=== PATIENT | female | born 1980 | race Caucasian/White ===

== ENCOUNTER 2017-07-25 05:41 | Inpatient (IN) | payer OTHER ==
--- NOTE | 2017-07-18 16:56 | GHP ---
[f rep st] PREOP HISTORY AND PHYSICAL DATE OF ADMISSION: 07/25/2017 ADMITTING DIAGNOSIS: 1. Intrauterine at 39 weeks. 2. History of section. 3. Request for permanent sterilization. HISTORY OF PRESENT ILLNESS: Patient is a 37-year-old 2, para 1-0-0-1, at 40 weeks with estimated due date 08/01/2017; this is by last menstrual period 10/24/2016, and confirmed by a first-trimester ultrasound at 9 weeks. The patient presented for a repeat , declines trial of labor. The patient has a history of a previous secondary to arrest of dilation and intolerance to labor. The patient states good movement. Denies any leakage of fluid, vaginal bleeding or any contractions at this time. The patient has good care at [facility], presented in her 1st trimester at 9 weeks. is complicated by AMA with all negative noninvasive testing. is also complicated by previous C- section. The patient has a history of depression, stable on Zoloft. She also has a history of HSV type 2 and was started on prophylactic Valtrex at 36 weeks. The patient did develop anemia of , and is tolerating iron. The patient did receive Tdap. On 20-week ultrasound, the tip of the placenta was seen over the scar, does not invade the myometrial wall. A followup ultrasound at 32 weeks, the placenta is again seen above the scar but not invading myometrial wall. GBS culture is negative. PAST OB HISTORY: In December 2012, she delivered a viable male infant, 39 weeks and 5 days via secondary to failure to progress past 3 cm, and intolerance to labor, viable male infant weighing 9 pounds. 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 Cycles every 28 days for 5 days. LMP 10/24. The patient had one abnormal Pap smear years ago, and has been normal since, no treatment. The patient has used Mirena, Paragard, and mini pill in the past. The patient has a history of type 2 HSV, no genital outbreak in over 10 years, and denies exposure to any other sexually transmitted diseases. PAST MEDICAL HISTORY: Migraine headaches, depression. PAST SURGICAL HISTORY: Shoulder surgery in 2009 secondary to snowboarding accident. MEDICATIONS: vitamins and Zoloft 50 mg. ALLERGIES: Sulfa, reaction is rash. FAMILY HISTORY: Maternal side history of anxiety, depression, schizophrenia. Mother, alcohol abuse. Maternal grandmother has COPD. SOCIAL HISTORY: Patient is . She lives with her and their son. 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 Denies any alcohol, tobacco or illicit drug use. REVIEW OF SYSTEMS: A 10-point review of systems is negative. Pertinent positives noted in HPI. LABS: Blood type is A positive, antibody negative. RPR nonreactive. Rubella immune. Hepatitis B surface antigen negative. HIV negative. Trio screen was negative. Urine culture negative. Pap, gonorrhea, chlamydia cultures all negative. AFP negative. Verifi negative. H and H 12 and 34. 1-hour Glucola 113. GBS culture negative. PHYSICAL EXAMINATION: VITAL SIGNS: Stable. GENERAL APPEARANCE: Well- nourished, well-developed female, alert and oriented x3. CARDIOVASCULAR: Regular rate and rhythm. LUNGS: Clear to auscultation bilaterally. ABDOMEN: Gravid, soft, nontender, nondistended. EXTREMITIES: Normal to inspection without calf tenderness or edema. PELVIC: Deferred. ASSESSMENT: The patient is a 37-year-old 2, para 1-0-0-1, at 40 weeks with a previous , declines trial of labor and requests permanent sterilization. PLAN: 1. Admit to Labor and Delivery for a repeat . 2. Surgical consents were obtained. Discussed R/B/A with patient including but not limited to bleeding, infection and damage to surrounding organs. The patient understands all risks of the surgery and wants to proceed with surgery. 3. Antibiotics project control analyst to the operating room. 4. Sequential compression devices for deep venous thrombosis prophylaxis. 5. The patient is a full code. . /[id number]/MODL MTDD
[2017-07-25] MEDS ORDERED: LR 500 ML IV ONE (06:26)
[2017-07-25] MEDS ORDERED: CITRIC ACID/SODIUM CITRATE 30 ML UDCUP PO ONE (06:26)
[2017-07-25] MEDS ORDERED: LR 1,000 ML IV SCH (06:30)
[2017-07-25] MEDS ORDERED: MISOPROSTOL 200 MCG TAB ONE ×2 (06:50→07:30)
[2017-07-25 06:53] LABS: % IMMATURE GRANULYOCYTES 0.9 % (0.0-1.1); ABSOLUTE IMMATURE GRANULOCYTES 0.06 10^3/uL (0.00-0.10); ADD DIFF? NO; ADD MORPH? NO; ADD SCAN? NO; ATYPICAL LYMPHOCYTE FLAG 20 (0-99); FRAGMENT RBC FLAG 0 (0-99); HEMATOCRIT 37.2 % (38.0-47.0); HEMOGLOBIN 12.8 g/dL (12.6-16.3); LEFT SHIFT FLG 0 (0-99); LIPEMIA HEMOLYSIS FLAG 90 (0-99); MEAN CELL HEMOGLOBIN 30.8 pg (27.9-34.1); MEAN CELL HEMOGLOBIN CONCENTR. 34.4 g/dL (32.4-36.7); MEAN CELL VOLUME 89.6 fL (81.5-99.8); MEAN PLATELET VOLUME 10.2 fL (8.7-11.7); PLATELET CLUMPS FLAG 0 (0-99); PLATELET COUNT 225 10^3/uL (150-400); RED BLOOD CELL COUNT 4.15 10^6/uL (4.18-5.33); RED CELL DISTRIBUTION WIDTH 12.4 % (11.5-15.2)
[2017-07-25] MEDS ORDERED: fentaNYL 100 MCG/2 ML INJ ONE (07:30)
[2017-07-25] MEDS ORDERED: TERBUTALINE SULFATE 1 MG/ML VIAL ONE (07:30)
[2017-07-25] MEDS ORDERED: AMMONIA AROMATIC 1 EACH AMP IH ONE (07:30)
[2017-07-25] MEDS ORDERED: OLIVE OIL 118 ML BTL ONE (07:30)
[2017-07-25] MEDS ORDERED: LIDOCAINE 1% 300 MG/30 ML SDV ONE (07:30)
[2017-07-25] MEDS ORDERED: OXYTOCIN 10 UNIT/ML VIAL ONE (07:30)
[2017-07-25] MEDS ORDERED: ceFAZolin 2 GM/DEXTROSE 100 ML IV ONE (07:45)
[2017-07-25] MEDS ORDERED: epHEDrine SULFATE 10 MG/ML SYR ONE (07:58)
[2017-07-25] MEDS ORDERED: OXYTOCIN 100 UNITS/10 ML VIAL ONE (07:58)
[2017-07-25] MEDS ORDERED: PHENYLEPHRINE HCL 100 MCG/ML SYR ONE ×2 (08:15→08:28)
[2017-07-25] MEDS ORDERED: GLYCOPYRROLATE 0.2 MG/1 ML VIAL ONE (08:26)
--- NOTE | 2017-07-25 08:52 | PREANESOB ---
Obstetric Pre-Anesthesia Info - General Info Proposed Procedure: csection : 2 Para: 0 - Info Status: Full Term FHR Pattern: Reassuring - Labor Status Section History: Repeat Indications for Current Section: Elective/Repeat (spinal as primary anesthetic) Anesthesia Allergies/Adverse Reactions: Allergy/AdvReac Type Severity Reaction Status Date / Time Sulfa (Sulfonamide Allergy Rash Verified 07/25/17 05:55 Antibiotics) Home Medications: Medication Instructions Recorded 1 tab PO DAILY 07/25/17 Zoloft 50mg (*) 50 mg PO DAILY 07/25/17 Visit Medications: Generic Name Dose Route Start Last Admin Trade Name Freq PRN Reason Stop Dose Admin Lactated Ringer's 1,000 mls @ 125 mls/hr 07/25/17 06:30 Lr IV 01/21/18 06:29 CONT JUSTUS Discontinued Medications Generic Name Dose Route Start Last Admin Trade Name Freq PRN Reason Stop Dose Admin Ammonia (Aromatic Spirit) Confirm 07/25/17 07:30 Ammonia Aromatic Administered 07/25/17 07:31 Dose 1 each IH .STK-MED ONE Citric Acid/Sodium Citrate 30 ml 07/25/17 06:26 07/25/17 07:34 Bicitra PO 07/25/17 06:27 30 ml ONCALL ONE Administration Ephedrine Sulfate Confirm 07/25/17 07:30 Ephedrine Sulfate Administered 07/25/17 07:31 Dose 50 mg .ROUTE .STK-MED ONE Ephedrine Sulfate Confirm 07/25/17 07:58 Ephedrine Sulfate Administered 07/25/17 07:59 Dose 10 mg .ROUTE .STK-MED ONE Ephedrine Sulfate Confirm 07/25/17 07:58 Ephedrine Sulfate Administered 07/25/17 07:59 Dose 50 mg .ROUTE .STK-MED ONE Fentanyl Confirm 07/25/17 07:30 Sublimaze Administered 07/25/17 07:31 Dose 100 mcg .ROUTE .STK-MED ONE Glycopyrrolate Confirm 07/25/17 08:26 Glycopyrrolate Administered 07/25/17 08:27 Dose 0.4 mg .ROUTE .STK-MED ONE Lactated Ringer's 500 mls @ 0 mls/hr 07/25/17 06:26 Lr IV 07/25/17 06:27 ONCE ONE As Directed Cefazolin Sodium/Dextrose 100 mls @ 200 mls/hr 07/25/17 07:45 07/25/17 07:34 Ancef 2 Gm (Premix) IV 07/25/17 08:14 100 mls ONCALL ONE Administration Lidocaine HCl Confirm 07/25/17 07:30 Lidocaine Hcl 1% Administered 07/25/17 07:31 Dose 300 mg .ROUTE .STK-MED ONE Misoprostol Confirm 07/25/17 06:50 Cytotec Administered 07/25/17 06:51 Dose 800 mcg .ROUTE .STK-MED ONE Misoprostol Confirm 07/25/17 07:30 Cytotec Administered 07/25/17 07:31 Dose 800 mcg .ROUTE .STK-MED ONE Morphine Sulfate Confirm 07/25/17 07:28 Morphine Administered 07/25/17 07:29 Dose 2 mg .ROUTE .STK-MED ONE [place] Oil Confirm 07/25/17 07:30 Sweet Oil Administered 07/25/17 07:31 Dose 118 ml .ROUTE .STK-MED ONE Oxytocin Confirm 07/25/17 07:30 Pitocin Administered 07/25/17 07:31 Dose 40 unit .ROUTE .STK-MED ONE Oxytocin Confirm 07/25/17 07:58 Pitocin Administered 07/25/17 07:59 Dose 100 units .ROUTE .STK-MED ONE Phenylephrine HCl Confirm 07/25/17 08:15 Neosynephrine Administered 07/25/17 08:16 Dose 1,000 mcg .ROUTE .STK-MED ONE Phenylephrine HCl Confirm 07/25/17 08:28 Neosynephrine Administered 07/25/17 08:29 Dose 1,000 mcg .ROUTE .STK-MED ONE Terbutaline Sulfate Confirm 07/25/17 07:30 Brethine Administered 07/25/17 07:31 Dose 1 mg .ROUTE .STK-MED ONE - Focused Exam Height/Weight (Nursing): Height 167.64 cm Weight 90.718 kg Respiratory: normal breath sounds Cardiovascular: normal peripheral pulses, regular rate, rhythm ASA Status: II Labs: 07/25/17 06:21 Patient ABO/Rh A POSITIVE 07/25/17 06:21 - Plan Anesthetic Plan: sab Consent Signed and on Chart: Yes
[2017-07-25] MEDS ORDERED: MEPERIDINE 25 MG/ML SYR IVP PRN (08:53)
[2017-07-25] MEDS ORDERED: ONDANSETRON 4 MG/2 ML VIAL IVP PRN (08:53)
[2017-07-25] MEDS ORDERED: PHENYLEPHRINE HCL 100 MCG/ML SYR IVP PRN (08:53)
[2017-07-25] MEDS ORDERED: fentaNYL 100 MCG/2 ML INJ IVP PRN (08:53)
[2017-07-25] MEDS ORDERED: NALOXONE HCL 0.4 MG/ML INJ IVP PRN (08:53)
--- NOTE | 2017-07-25 09:39 | POSTANESTH ---
Post Anesthetic Evaluation Cardiovascular Status: Normal, Stable Respiratory Status: Normal, Stable Level of Consciousness/Mental Status: Can Participate in Eval Pain Control: Adequate, Prn Tx Ordered Nausea/Vomiting Control: Adequate, Prn Tx Ordered Complications Possibly Related to Anesthesia: None Noted
[2017-07-25] MEDS ORDERED: BISACODYL 10 MG SUPP PR PRN (09:50)
[2017-07-25] MEDS ORDERED: LACTULOSE 20 GM/30 ML UDCUP PO PRN (09:50)
[2017-07-25] MEDS ORDERED: SIMETHICONE 80 MG TAB CHEW PO PRN (09:50)
[2017-07-25] MEDS ORDERED: POLYETHYLENE GLYCOL 3350 17 GM PKT PO PRN (09:50)
[2017-07-25] MEDS ORDERED: DOCUSATE SODIUM 100 MG CAP PO PRN (09:50)
[2017-07-25] MEDS ORDERED: PROMETHAZINE HCL 25 MG/ML INJ IVP PRN (09:50)
[2017-07-25] MEDS ORDERED: MAGNESIUM HYDROXIDE 30 ML UDCUP PO PRN (09:50)
--- NOTE | 2017-07-25 09:56 | OBDEL ---
Info Type: Repeat Presentation at Delivery: Vertex L&D Analgesia/Anesthesia Type: Spinal GBS+: No Intrapartum Medications: Discontinued Medications Generic Name Dose Route Start Last Admin Trade Name Doris PRN Reason Stop Dose Admin Citric Acid/Sodium Citrate 30 ml 07/25/17 06:26 07/25/17 07:34 Bicitra PO 07/25/17 06:27 30 ml ONCALL ONE Administration Cefazolin Sodium/Dextrose 100 mls @ 200 mls/hr 07/25/17 07:45 07/25/17 07:34 Ancef 2 Gm (Premix) IV 07/25/17 08:14 100 mls ONCALL ONE Administration - Infant Care Provider Front Edger/TRACTOR ENGINE MECHANIC: Mary Vera - Hospital Course Intrapartum: 07/25/17 09:53 RCS and b/l salpingectomy Indications for Delivery: Elective (RCS, declines trial of labor) Operative Report - Delivery Pre-op Diagnoses: IUP @ 39 weeks with previous c/s, declines trial of labor and requests permanent sterilization Post-op Diagnoses: IUP @ 39 weeks with previous c/s, declines trial of labor and requests permanent sterilization History of Prior Section: Yes Number of Prior Sections: 1 Nulliparous Prior to Delivery: No Indications for Prior Section: Arrest of Dilation Indications for Current Section: Elective/Repeat (spinal as primary anesthetic) Procedure: Scheduled, Low Transverse Surgeon: Mariaelena Seth Instrument Specialist: Liat Salazar Anesthesiologist: Zëo Zavala Complications: None Findings: A viable male infant at 0820 with 7 and 9 Apgars in cephalic presentation with a loose nuchal cord x 1-slipped over head. Cord clamping was delayed x 60 sec. Cord blood was obtained. Placenta delivered spontaneously intact with a 3-vc. Grossly normal appearing uterus, tubes and ovaries. R ovary was adhered to R tube. Specimen(s)/Path: Fallopian Tube(s) IV Fluid (ml): 1,800 EBL: 1000 cc UO: 400 cc clear urine [place] Data Romano Delivery Date: 07/25/17 Delivery Time: 08:20 SCOUT: 08/01/17 Gestational Age: 39 week(s) and 0 day(s) Sex of Infant: Male Score (1 Min): 7 Score (5 Min): 8 ICD10 Worksheet Patient Problems: Problems Problem Status Onset Encounter for sterilization Acute Previous delivery affecting Acute Status post repeat low transverse section Acute - ICD10 Problem Qualifiers (1) Previous delivery affecting (2) Status post repeat low transverse section (3) Encounter for sterilization
[2017-07-25] MEDS ORDERED: HYDROmorphONE/DILAUDID 1 MG/ML INJ IVP PRN (12:25)
--- NOTE | 2017-07-25 14:05 | GOP ---
[f rep st] OPERATIVE REPORT DATE OF OPERATION: 07/25/2017 SURGEON: Mariaelena Seth DO HUMAN RESOURCES ASSOCIATE: Liat Salazar CNM. ANESTHESIA: Spinal. ANESTHESIOLOGIST: Dr. Zoë Zavala. PREOPERATIVE DIAGNOSIS: 1. Intrauterine at 39 weeks. 2. Previous section. Declines trial of labor. 3. Request for permanent sterilization. POSTOPERATIVE DIAGNOSIS: 1. Intrauterine at 39 weeks. 2. Previous section. Declines trial of labor. 3. Request for permanent sterilization. PROCEDURE PERFORMED: Repeat low transverse section, bilateral salpingectomy. FINDINGS: A viable male infant born at 8:20 with 7 and 9 Apgars in cephalic presentation with a loose nuchal cord x1 slipped over head. Cord clamping was delayed for 60 seconds. Cord blood was obtained. Placenta delivered spontaneously intact with 3-vessel cord. Grossly normal-appearing uterus, tubes , and ovaries. There were some adhesions of the right ovary to the right fallopian tube noted. SPECIMENS: Bilateral tubes. ESTIMATED BLOOD LOSS: 1 L. INDICATIONS: The patient is a 37-year-old, 2, para 1-0-0-1, at 39 weeks who presents with a history of a previous . Declines a trial of labor and requests permanent sterilization. We discussed the risks, benefits, and alternatives of the procedure including, but not limited to, bleeding, infection, damage to surrounding organs. Patient understands all risks at this time and wants to proceed with surgery. The patient was adequately counseled at this time. DESCRIPTION OF PROCEDURE: Patient was taken to the operating room where spinal anesthesia was obtained. The patient was prepped and draped in the usual sterile fashion, placed in supine position with a leftward tilt. The patient was given 2 g of Ancef on-call to the OR. Time-out was performed. After anesthesia was found be adequate, a Pfannenstiel skin incision was made 2 fingerbreadths above the pubic symphysis with a scalpel. Bovie was then used to carry down to the underlying fascia layer. Fascia was nicked in the midline and extended bilaterally with curved Ocasio scissors. There was noted to be some scar tissue from the previous . The superior aspect of the rectus muscles was then grasped with Hillary clamps. The fascia was dissected off sharply with Ocasio scissors. In a similar fashion, the inferior aspect of the rectus muscle was grasped with Hillary clamps, and the fascia dissected off sharply with Ocasio scissors. Peritoneum was then visualized and entered bluntly. Incision extended laterally. Bladder blade was then placed to retract the bladder from the lower uterine segment. The vesicouterine fascia was seen and incised using Metzenbaum scissors, and then a bladder flap was created digitally. Bladder blade was then placed to reflect the bladder flap. Transverse lower segment uterine incision was then made with a scalpel and extended superiorly and inferiorly. Infant was delivered cephalic, with a loose nuchal cord that was slipped over head, and then delivery of the anterior and posterior shoulders without any difficulty through the hysterotomy. Cord clamping was delayed for 60 seconds. The cord was then cut x2 and clamped. Infant handed off to awaiting nurse practitioner. Cord blood was obtained. Placenta was then delivered spontaneously with a 3-vessel cord. Uterus exteriorized and cleared of all blood, debris, and any remaining placenta. Hysterotomy was then reapproximated with 0 Vicryl stitch in a running fashion. Hemostasis was noted. A second imbricating stitch of 0 Vicryl was used for further hemostasis. We then turned our attention to the fallopian tubes bilaterally. They were grasped with Dahlen clamps and the blood vessels that were located in the mesosalpinx were tied off and then suture ligated, and the fallopian tubes were then removed using cautery. Hemostasis was assured, and a similar procedure was done on the left side. All specimens sent to Pathology. We then looked at our hysterotomy incision again. There was noted to be some oozing, so an additional figure-of-8 stitch was placed x2 with good hemostasis. We examined the tubes and ovaries. We did note the right ovary was adhered to the right tube. These adhesions were taken down using the Bovie and hemostasis was noted. Uterus was then placed back in the abdomen in anatomical position. The gutters were cleared of all debris and blood clots. The uterus incision was inspected again. There was noted to be some oozing, so surgical César was placed on the incision, and hemostasis was achieved. We did visualize the pedicles near the fallopian tubes bilaterally and these looked hemostatic as well. The muscles were then reapproximated using 2-0 Vicryl. Fascial incision was then reapproximated with a single running 0 Vicryl suture. Hemostasis was noted. The skin was then closed with subcuticular 4-0 Vicryl on a Endy needle. Mastisol and Steri-Strips were then applied. Patient tolerated the procedure well. No complications. Sponge, lap, and needle counts correct x2. The patient was then taken to PACU awake and in stable condition. IV FLUIDS: 1800 cc of LR. URINE OUTPUT: 400 cc of clear urine at the end of the procedure. /[id number]/MODL MTDD
[2017-07-25] MEDS: KETOROLAC 30 MG/1 ML SDV IVP SCH ×3 (16:45→22:39)
[2017-07-25] MEDS: HYDROCODONE/APAP 5/325 TAB PO PRN (17:28)
[2017-07-25] MEDS: SENNOSIDES/DOCUSATE SODIUM TAB PO SCH (21:35)
[2017-07-26] MEDS: KETOROLAC 30 MG/1 ML SDV IVP SCH (05:00)
[2017-07-26] MEDS: HYDROCODONE/APAP 5/325 TAB PO PRN ×6 (06:44→23:17)
[2017-07-26] MEDS ORDERED: ZOLOFT 50 MG PO SCH (09:00)
[2017-07-26] MEDS: SENNOSIDES/DOCUSATE SODIUM TAB PO SCH ×2 (09:19→20:26)
[2017-07-26] MEDS: SERTRALINE HCL 50 MG TAB PO SCH (09:20)
[2017-07-26] MEDS: IBUPROFEN 600 MG TAB PO PRN ×2 (10:41→18:16)
--- NOTE | 2017-07-26 19:07 | OBPP ---
Progress Note Assessment/Plan: Assessment: POD 1 s/p RCS, BS anemia Plan: routine care 07/26/17 19:04 Subjective/ Course: 07/26/17 19:05 Pt doing well. pain controlled well with [place], ibu. urinating fine. Baby is latching well - worried about no production last time. Reg diet. Amb well. Objective: 07/26/17 05:10 Patient ABO/Rh A POSITIVE 07/25/17 06:21 Temp Pulse Resp BP Pulse Ox 36.2 C 83 22 H 98/62 L 98 07/26/17 18:00 07/26/17 18:00 07/26/17 18:00 07/26/17 18:00 07/26/17 18:00 Uterine Position/Fundal Height: Umbilicus -1 Uterine Tone: Firm Physical Exam - Physical Exam Abdomen: non-tender (approp post op tenderness), soft, other (incision CDI, FF at umb -1) Extremities: non-tender, pedal edema (minimal) Skin: normal color, warm/dry Neuro/Psych: alert, normal mood/affect
[2017-07-26] MEDS: IRON POLYSAC/IRON HEME 28 MG TAB PO SCH (20:25)
[2017-07-27] MEDS: HYDROCODONE/APAP 5/325 TAB PO PRN ×3 (03:28→11:25)
[2017-07-27 04:39] VITALS: TEMP 97
[2017-07-27] MEDS: IRON POLYSAC/IRON HEME 28 MG TAB PO SCH (07:38)
[2017-07-27] MEDS: SENNOSIDES/DOCUSATE SODIUM TAB PO SCH (07:38)
[2017-07-27] MEDS: SERTRALINE HCL 50 MG TAB PO SCH (07:39)
[2017-07-27] MEDS: IBUPROFEN 600 MG TAB PO PRN (07:40)
[2017-07-27 07:47] VITALS: BP 95/71; PULSE 92; RESP 14; O2SAT 96
--- NOTE | 2017-07-27 08:42 | OBPP ---
Progress Note Assessment/Plan: Assessment: pod# 2 s/p RLTCS anemia difficulty with breast feeding Plan: discharge patient to home supplement and formula as needed iron 07/27/17 08:39 Subjective/ Course: 07/26/17 19:05 Pt doing well. pain controlled well with [place], ibu. urinating fine. Baby is latching well - worried about no production last time. Reg diet. Amb well. 07/27/17 08:40 patient is doing great. pain is well controlled. normal lochia. denies headache and changes in vision. ambulating. passing gas. not even producing clostrum. last breast feeding experience was very frustrating and patient is trying to be reasonable and nice to herself and will likely supplement. Objective: 07/26/17 05:10 Patient ABO/Rh A POSITIVE 07/25/17 06:21 Temp Pulse Resp BP Pulse Ox 36.1 C 92 14 95/71 L 96 07/27/17 07:44 07/27/17 07:44 07/27/17 07:44 07/27/17 07:44 07/27/17 07:44 Physical Exam - Physical Exam Neck: non-tender, full range of motion, supple Respiratory: chest non-tender, lungs clear, normal breath sounds Cardiac/Chest: normal peripheral pulses, regular rate, rhythm Abdomen: normal bowel sounds, non-tender Extremities: normal range of motion, non-tender, normal inspection, normal capillary refill Skin: normal color, warm/dry, other (incision clean dry and intact) Neuro/Psych: no motor/sensory deficits, alert, normal mood/affect, oriented x 3
--- NOTE | 2017-07-27 08:45 | OBGCSDC ---
General Delivery Information - General Info : 2 Para: 1 Abortions: 0 Type: Repeat L&D Analgesia/Anesthesia Type: Spinal Admission Date: 07/25/17 Labs: Patient ABO/Rh A POSITIVE 07/25/17 06:21 Hct 31.9 % (38.0-47.0) L 07/26/17 05:10 - Hospital Course Intrapartum: 07/25/17 09:53 RCS and b/l salpingectomy : 07/26/17 19:05 Pt doing well. pain controlled well with [place], ibu. urinating fine. Baby is latching well - worried about no production last time. Reg diet. Amb well. 07/27/17 08:40 patient is doing great. pain is well controlled. normal lochia. denies headache and changes in vision. ambulating. passing gas. not even producing clostrum. last breast feeding experience was very frustrating and patient is trying to be reasonable and nice to herself and will likely supplement. - Delivery Providers Surgeon: Mariaelena Seth Blaster Helper: Liat Salazar Anesthesiologist: Zoë Zavala - Delivery Number of Prior Sections: 1 Indications for Current Section: Elective/Repeat (spinal as primary anesthetic) Surgical Procedures: Scheduled, Low Transverse Intra-op Complications: None EBL: 1000 cc UO: 400 cc clear urine Data Romano Delivery Date: 07/25/17 Delivery Time: 08:20 SCOUT: 07/25/17 Gestational Age: 40 week(s) and 2 day(s) Sex of Infant: Male Weight (gm): 3568 g Score (1 Min): 7 Score (5 Min): 8 Discharge Information - Discharge Information Prescriptions: Hydrocodone/APAP 5/325 [[place] 5/325 (*)] 1 - 2 tab PO Q4HRS PRN #30 tab PRN Reason: Pain, Moderate Ibuprofen [Motrin (*)] 600 mg PO Q6HRS PRN #30 tab PRN Reason: Inflammation Condition: Good Instruction/Follow Up: Two Weeks, Four Weeks, Six Weeks
== END 2017-07-27 11:50 | disposition home or self-care (01) | DRG 766 ==
LOC: FLD 05:41 → FOB 12:44
PROVIDERS: ADMIT Obstetrics & Gynecology; ATTEND Obstetrics & Gynecology
PROC: 0UB70ZZ Excision of Bilateral Fallopian Tubes, Open Approach (ICD-10-PCS; principal; 2017-07-25)
PROC: 10D00Z1 Extraction of Products of Conception, Low, Open Approach (ICD-10-PCS; principal; 2017-07-25)
PROC: 0UL70ZZ Occlusion of Bilateral Fallopian Tubes, Open Approach (ICD-10-PCS; principal; 2017-07-25)
DX: O34.211 Maternal care for low transverse scar from previous cesarean delivery (principal); Z30.2 Encounter for sterilization; O99.013 Anemia complicating pregnancy, third trimester; O99.343 Other mental disorders complicating pregnancy, third trimester; D64.9 Anemia, unspecified; F32.9 Major depressive disorder, single episode, unspecified; Z3A.40 40 weeks gestation of pregnancy; Z37.0 Single live birth
CPT/HCPCS: J0690; J1170; J1885; J2370; J2550; J2590; J3010; J3105